=== PATIENT | female | born 1970 | race Two or more races ===

== ENCOUNTER 2018-08-19 00:53 | Emergency (ER) | payer SELFPAY ==
[~2018-08-19] VITALS: Ht 172.7 cm; Wt 81.6 kg
[2018-08-19] MEDS ORDERED: MVI in SODIUM CHLORIDE 0.9% 1,010 ML ONE (01:08)
[2018-08-19] MEDS ORDERED: THIAMINE 100mg/ml INJ (200mg/2ml VIAL) ONE (01:08)
[2018-08-19 01:23] VITALS: BP 139/81
[2018-08-19] MEDS ORDERED: SODIUM CHLORIDE 0.9% 1,000 ML IV ONE (01:45)
[2018-08-19 02:48] LABS: Amphetamine Screen, Urine NEGATIVE (NEGATIVE); Barbiturate Scree,Urine NEGATIVE (NEGATIVE); Benzodiazephine Screen, Urine NEGATIVE (NEGATIVE); Cannabinoid Screen, Urine NEGATIVE (NEGATIVE); Cocaine Screen, Urine NEGATIVE (NEGATIVE); Opiate Scree,Urine NEGATIVE (NEGATIVE); Phencyclidine Screen, Urine NEGATIVE (NEGATIVE)
== END 2018-08-19 02:39 | disposition left against medical advice (07) ==
LOC: EDBD 00:53 → ER 01:00
DX: F10.10 Alcohol abuse, uncomplicated (principal); Y90.0 Blood alcohol level of less than 20 mg/100 ml; Z53.21 Procedure and treatment not carried out due to patient leaving prior to being seen by health care provider
CPT/HCPCS: 36415; 80307; 80320; 99281; J3411; J3475